=== PATIENT | female | born 1980 | race Caucasian/White ===

== ENCOUNTER 2019-05-13 10:04 | Outpatient (CLI) | payer OTHER, SELFPAY ==
[2019-05-19 09:25] LABS: COVID-19 RT-PCR Result Not Detected (NotDetected)
== END 2019-05-13 10:24 ==
PROVIDERS: PCP Nurse Practitioner Family; Visit Provider Nurse Practitioner Family
DX: Z20.828 Contact with and (suspected) exposure to other viral communicable diseases (principal); Z11.59 Encounter for screening for other viral diseases; R05 Cough
CPT/HCPCS: 87449; U0003

== ENCOUNTER 2019-10-06 15:48 | Outpatient (REF) | payer OTHER, SELFPAY ==
[2019-10-06 21:08] LABS: Anion Gap 9.5 mmol/L (3-11); BUN 8 mg/dL (7-18); CO2 27.5 mmol/L (21.0-32.0); CREATININE 0.74 mg/dL (0.55-1.02); Calcium 9.1 mg/dL (8.5-10.1); Calculated LDL 146 mg/dL (<100); Chloride 104 mmol/L (98-107); Cholesterol 211 mg/dL (<200); Glucose 116 mg/dL (74-106); HDL Cholesterol 37 mg/dL (40-60); Potassium 3.5 mmol/L (3.5-5.1); Sodium 141 mmol/L (136-145); TSH 1.56 uIU/mL (0.36-3.74); Triglyceride 141 mg/dL (<150)
== END 2019-10-06 16:08 ==
LOC: NCHCN 15:48
PROVIDERS: PCP Nurse Practitioner Family; Visit Provider Nurse Practitioner Family
DX: E78.5 Hyperlipidemia, unspecified (principal); G47.30 Sleep apnea, unspecified; Z68.41 Body mass index [BMI] 40.0-44.9, adult
CPT/HCPCS: 80048; 80061; 84443

== ENCOUNTER 2020-01-28 13:50 | Outpatient (REF) | payer OTHER, SELFPAY ==
[2020-02-02 09:23] LABS: COVID-19 RT-PCR Result INVALID (Negative)
== END 2020-01-28 14:10 ==
LOC: NCHCN 13:50
PROVIDERS: PCP Nurse Practitioner Family; Visit Provider Family Medicine
DX: Z20.828 Contact with and (suspected) exposure to other viral communicable diseases (principal)
CPT/HCPCS: U0003

== ENCOUNTER 2020-02-06 21:47 | Outpatient (REF) | payer OTHER, SELFPAY ==
[2020-02-06 21:15] LABS: Vitamin B12 348 pg/mL (193-986)
[2020-02-09 05:22] LABS: Vitamin D 25 Total 40.8 ng/ml (30-100)
== END 2020-02-06 22:07 ==
LOC: NCHCN 21:47
PROVIDERS: PCP Nurse Practitioner Family; Visit Provider Family Medicine
DX: R25.8 Other abnormal involuntary movements (principal); E55.9 Vitamin D deficiency, unspecified; E53.8 Deficiency of other specified B group vitamins
CPT/HCPCS: 82306; 82607

== ENCOUNTER 2020-06-22 19:06 | Outpatient (REF) | payer OTHER, SELFPAY ==
[2020-06-22 20:32] LABS: HCT 43.8 % (36.0-46.0); HGB 14.8 g/dL (11.2-15.7); MCHC 33.8 % (32.0-36.0); MCV 91.8 fL (80-95); MPV 8.8 fL (8.0-11.0); Platelet Count 393 10^3/uL (130-400); RBC 4.77 10^6/uL (3.93-5.22); RDW 12.8 % (11.7-14.6); RDW-SD 42.9 fL; WBC 13.57 10^3/uL (4.4-10.8)
== END 2020-06-22 19:07 | disposition home or self-care (01) ==
LOC: NCHCN 19:06
PROVIDERS: PCP Nurse Practitioner Family; Visit Provider Family Medicine
DX: E28.2 Polycystic ovarian syndrome (principal)
CPT/HCPCS: 85027; 83036

== ENCOUNTER 2020-08-26 16:46 | Outpatient (REF) | payer OTHER, SELFPAY ==
[2020-08-26 21:01] LABS: Absolute Eosinophil Count 0.29 10^3/uL (0.0-0.7); Absolute Monocyte Count 0.96 10^3/uL (0.1-0.8); Absolute Neutrophil Count 8.21 10^3/uL (1.2-6.7); Basophils % 0.8; Eosinophils % 2.3; HCT 42.3 % (36.0-46.0); HGB 13.8 g/dL (11.2-15.7); Immature Grans % 1.6; Lymphocytes % 22.9; MCH 30.7 pg (27.0-33.0); MCHC 32.6 % (32.0-36.0); MCV 94.2 fL (80-95); MPV 9.3 fL (8.0-11.0); Monocytes % 7.6; Neutrophils % 64.8; Nucleated RBC 0 %; Platelet Count 432 10^3/uL (130-400); RBC 4.49 10^6/uL (3.93-5.22); RDW 12.8 % (11.7-14.6); RDW-SD 44.2 fL; WBC 12.67 10^3/uL (4.4-10.8)
[2020-08-26 21:26] LABS: ALT 20 U/L (14-59); AST 13 U/L (15-37); Albumin 3.7 g/dL (3.4-5.0); Alkaline Phosphatase 79 U/L (46-116); Anion Gap 8.7 mmol/L (3-11); BUN 7 mg/dL (7-18); Bilirubin, Total 0.4 mg/dL (0.2-1.0); CO2 27.3 mmol/L (21.0-32.0); CREATININE 0.8 mg/dL (0.55-1.02); Calcium 9.3 mg/dL (8.5-10.1); Chloride 107 mmol/L (98-107); Glucose 90 mg/dL (74-106); Potassium 3.9 mmol/L (3.5-5.1); Sodium 143 mmol/L (136-145); TSH (W/Ref FT4) 1.09 uIU/mL (0.36-3.74); Total Protein 6.8 g/dL (6.4-8.2)
== END 2020-08-26 16:47 | disposition home or self-care (01) ==
LOC: NCHCN 16:46
PROVIDERS: PCP Nurse Practitioner Family; Visit Provider Family Medicine
DX: D25.9 Leiomyoma of uterus, unspecified (principal); E78.5 Hyperlipidemia, unspecified; R06.02 Shortness of breath; R53.83 Other fatigue
CPT/HCPCS: 80053; 84443; 85025

== ENCOUNTER 2024-06-02 14:20 | Outpatient (REF) | payer OTHER, SELFPAY | END 2024-06-02 14:21 | disposition home or self-care (01) | LOC: NCHCN 14:20 | PROVIDERS: PCP Nurse Practitioner Family; Visit Provider Family Medicine | DX: L72.9 Follicular cyst of the skin and subcutaneous tissue, unspecified (principal) | CPT/HCPCS: 87070; 87205 ==

== ENCOUNTER 2024-10-14 16:46 | Outpatient (REF) | payer BC, SELFPAY | END 2024-10-14 16:47 | disposition home or self-care (01) | LOC: NCHCN 16:46 | PROVIDERS: PCP Nurse Practitioner Family; Visit Provider Family Medicine | DX: R39.9 Unspecified symptoms and signs involving the genitourinary system (principal) | CPT/HCPCS: 87086 ==